=== PATIENT | male | born 1960 ===

== ENCOUNTER 2025-08-09 09:37 | Outpatient (CLI) | payer MEDICARE | END 2025-08-09 09:38 | disposition home or self-care (01) | LOC: SCSRAD 09:37 | DX: M54.50 Low back pain, unspecified (principal); R10.A1 Flank pain, right side; M43.16 Spondylolisthesis, lumbar region; M47.816 Spondylosis without myelopathy or radiculopathy, lumbar region | CPT/HCPCS: 72110; 74018 ==